=== PATIENT | male | born 1975 | race Caucasian/White ===

== ENCOUNTER → 2016-12-15 | Outpatient (CLI) | payer OTHER ==
[~2016-12-15] VITALS: Ht 175.3 cm; Wt 93.1 kg
[~2016-12-15] MED LIST: BACLOFEN 10MG T10 MG PO; IMITREX 50 MG T50 MG PO; NABUMETONE 500500 M1 PO; NEURONTIN600 MG PO; ROBAXIN 750 MG750 M1 PO; SALSALATE 500M500 MG PO; VITAMIN D1000 UNIT PO; WELLBUTRIN SR150 MG PO
--- NOTE | ~2016-12-15 | HPC ---
[facility] [place] [address] PAIN MANAGEMENT CONSULTATION Name: QING BUSTAMANTE Akhil Room #: REG [facility]#: [id number] Admission: 12/15/16 Attend Phys: Wesley العلي DO Discharge: Date of : 71 Report #: [id number] THIS REPORT FOR: //name// CC: [facility] physician/PCP ALISSA العلي DATE OF SERVICE: 12/15/2016 DATE OF SERVICE: 12/16/2015 CHIEF COMPLAINT: Myofascial pain. HISTORY OF PRESENT ILLNESS: As you know, patient is a 41-year-old male suffering from chronic myofascial paraspinal musculature pain that radiates from the low back to the cervical region. He denies specific injury or trauma that may have led to symptoms. He states the pain began 04/06/2010, progressively worsened. He has been followed by the [place] system for some time where he has been evaluated and treated. Apparently, the patient received trigger point injections in the past which were effective. He is referred to our clinic for evaluation with essentially negative MRI of the lumbar spine, which shows no significant arthritic changes. No focal disk protrusions. No extrusions and only minimal facet arthropathy at 1 level at L4-L5. The patient indicates his pain is continuous and aching, placing current pain score is 7/10, daily average at 6-7/10. Worst the pain has been is 10/10. The patient states the pain is elicited with lifting, carrying, sitting, standing and improves with lying down, massage and the use of pain medications. He has been referred specifically to our clinic to discuss interventional treatments for axial back pain. PAST MEDICAL HISTORY: None. PAST SURGICAL HISTORY: Left index finger surgery, 02/24/2015. SOCIAL HISTORY: The patient smokes half pack tobacco per day and has done so for greater than 16 years. 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 He is working, not receiving workmen's compensation nor is he trying to obtain disability benefits. He is not in litigation in regards to his pain. He is unaccompanied today. REVIEW OF SYSTEMS: Positive for headaches, double vision, depression, paraspinal musculature pain. All other review of systems negative per 12-point review of systems other than those listed in history of present illness. Pain impact score 27/70 indicating mild to moderate interference of daily activities secondary to pain. [address] [address] PAIN MANAGEMENT CONSULTATION Name: QING BUSTAMANTE Akhil Room #: REG NEETA Pelayo#: [id number] Admission: 12/15/16 Attend Phys: Wesley العلي DO Discharge: Date of : 71 Report #: [id number] ALLERGIES: No known drug allergies. CURRENT MEDICATIONS: Sumatriptan 50 mg p.r.n., salicylate 500 mg 3 times a day, methocarbamol 750 mg twice a day, vitamin D 1000 units per day, bupropion SR 150 mg once a day. IMAGING: MRI lumbar spine obtained on 02/18/2016 shows 5 lumbar vertebral bodies, mild broad-based disk bulge at L5-S1, encroaching upon but not touching the S1 nerve roots. No central canal stenosis, neural foraminal stenosis, minimal facet arthropathy noted at L4-L5. PHYSICAL EXAMINATION: VITAL SIGNS: Blood pressure 143/93, pulse 90, respiratory rate 16, unlabored. The patient is 96% on room air. Height 5 feet 9 inches tall, weight 205.2 pounds, BMI calculated 30.3. GENERAL: Well-developed, well-nourished, well-hydrated 41-year-old male appearing stated age, placing current pain score at approximately 7/10. HEENT: Normocephalic, atraumatic. Pupils equal, round, reactive to light. Extraocular muscles are intact. Sclerae nonicteric without injection. NEUROLOGIC: Cranial nerves 2 through grossly intact. LUNGS: Clear, no wheezes, rhonchi or rales. CARDIOVASCULAR: Regular. No appreciable gallop or rub. ABDOMEN: Soft, nontender, nondistended, normoactive bowel sounds. EXTREMITIES: Show no clubbing, no cyanosis, no edema. MUSCULOSKELETAL: There is palpatory tenderness throughout the paraspinal musculature of the cervical, thoracic and lumbar area. The majority of symptoms were noted in the mid thoracic to lower lumbar area. I was able to elicit 10 specific trigger points, multiple tender points throughout the area. Deep inhalation and exhalation does not change overall pain. Forward flexion of the lumbar spine changes. Symptoms mildly intensifying mid thoracic, lower thoracic and entire lumbar paraspinal musculature. Extension cause no change in pain as does lateral flexion. Seated straight leg raising negative. Supine straight leg raising negative. Ranulfo's test negative. Modified Gaenslen's positive for some axial back pain noted paraspinally. Ankle clonus negative. Babinski is negative. Intact to light touch from L1 through S2 dermatomes. Deep tendon reflexes were symmetrical in patella and Achilles. ASSESSMENT: 1. Myofascial pain. 2. Muscle spasms of the paraspinal musculature of the thoracic and lumbar region. 3. Chronic intractable pain. PLAN: 1. The patient has been referred to our service for evaluation for what appears to be myofascial pain. The patient is suffering from no radicular symptoms in [address] [address] PAIN MANAGEMENT CONSULTATION Name: QING BUSTAMANTE Room #: REG [facility]#: [id number] Admission: 12/15/16 Attend Phys: Wesley العلي DO Discharge: Date of : 71 Report #: [id number] his case. The pain is elicited with deep palpation along the paraspinal musculature of the thoracic and lumbar area. I was able to elicit 10 trigger points, no specific tender points during the evaluation. We have reviewed with the patient the lack of pathology in the lumbar region thus ruling out the lumbar and the thoracic area, as the source of the patient's symptoms. Please do announce to the patient today, there are no findings in his lumbar region that would be at all concerning. Only findings were mild facet arthropathy at L4-L5 which is age related and a mild broad-based disk bulge at L5-S1, again age-related finding. We have discussed with the patient the options for treatment for myofascial pain. The following was discussed. The patient and I discussed treatment options, which would include physical therapy, stretching exercises, core strengthening, concerted effort at any kind of weight loss that may be appreciated. We also discussed trigger point injections of the paraspinal musculature, use of the nonsteroidal anti-inflammatory medications and possible rotation in his muscle relaxant, which can be handled by his primary care team. We also discussed cognitive behavioral therapy. After reviewing risks and benefits of all proposed treatment options, the patient chose to begin with physical therapy and trigger point injections. 2. The patient will be sent to physical therapy. He will be doing appointments twice a week for 6 weeks. I have offered to the patient not only the typical physical therapy type program, but also modalities on an as needed basis such as electrical stimulation ultrasound, TENS units and traction if necessary. The patient will begin physical therapy immediately. 3. The patient has requested trigger point injections to be performed today. I have advised the patient of the risks and benefits of this procedure. The risks include but not necessarily limited to bleeding, bruising, infection, worsening pain, no relief of pain, also risk of temporary or permanent muscle weakness, temporary or permanent nerve damage. The patient states understood and wished to proceed. 4. The patient will return to our clinic after he has completed his physical therapy. We will see him back in consultation just to confirm improvement in his overall pain. The patient was advised that once he begins a physical therapy and finds relief with its use, he is to continue the physical therapy on his own at home. 5. We wish to thank you for the opportunity to see the patient in consultation. We will keep you apprised of his response to treatment, as we address his myofascial pain. Again, we wish to thank you for the opportunity to participate in his care. PROCEDURE NOTE DESCRIPTION OF PROCEDURE: Trigger point injections. After obtaining written consent, the patient was placed in a prone position. By [address] [address] PAIN MANAGEMENT CONSULTATION Name: QING BUSTAMANTE Room #: REG CLJasvir Pelayo#: [id number] Admission: 12/15/16 Attend Phys: Wesley العلي DO Discharge: Date of : 71 Report #: [id number] palpating using a single finger, 10 trigger points were identified that reproduced the patient's typical radiating pain pattern. Trigger points were located in the paraspinal musculature of the thoracic and lumbar area bilaterally. Each of the target sites of injections were cleansed using aseptic technique with chlorhexidine. A #27 gauge 1-1/4 inch needle was used to perform this procedure. The needle was advanced towards each trigger point until the patient's typical radiating pain pattern was reproduced. After negative aspiration for heme, 1 mL of a solution containing 1 mL 40 mg per mL, 40 mg total triamcinolone and 9 mL of bupivacaine 0.5% injected in a fanned out distribution at each of the trigger points. A total volume of 10 mL being given. Sterile bandages were placed over each injection site. The patient tolerated the procedure well, carefully escorted to recovery room in stable condition. No apparent complications. After meeting discharge criteria, the patient discharged home. By: [id number] Wesley العلي DO /delicia
== END | disposition home or self-care (01) ==
LOC: PAIN 07:21
DX: M79.1 Myalgia (principal); G89.29 Other chronic pain; F17.210 Nicotine dependence, cigarettes, uncomplicated; Z98.890 Other specified postprocedural states

== ENCOUNTER → 2016-12-29 | Outpatient (CLI) | payer OTHER ==
--- NOTE | ~2016-12-29 | HPC ---
[facility] [address] [place] [address] PAIN MANAGEMENT CONSULTATION Name: ROBBYQING Akhil Room #[facility] [id number] Admission: 12/29/16 Attend Phys: Wesley العلي DO Discharge: Date of : 71 Report #: [id number] THIS REPORT FOR: //name// CC: [facility] physician/PCP ALISSA العلي DATE OF SERVICE: 12/29/2016 DATE OF SERVICE: 12/29/2016 CHIEF COMPLAINT: Myofascial pain. HISTORY OF PRESENT ILLNESS: As you know, patient is a 41-year-old male suffering from chronic myofascial paraspinal musculature pain that radiates from the low back towards cervical region. He has no spinous process tenderness. He was last seen in our clinic where he underwent trigger point injections on 12/15/2016. He returns today stating improvement of about 25%. He has less pain overall. He is taking baclofen b.i.d. and nabumetone b.i.d. with good efficacy. His pain is now rated at 5/10. States the pain is constant, aching, and throbbing, exacerbated with lifting, standing for any length of time, sitting for any length of time, use of medications, massage therapy, lying down, TENS unit and trigger point injections. He returns today to discuss other treatment options to address residual pain. ALLERGIES: No known drug allergies. CURRENT MEDICATIONS: Nabumetone 500 mg b.i.d., baclofen 10 mg b.i.d., sumatriptan 50 mg p.r.n., salicylate 500 mg 3 times a day, gabapentin 600 mg twice a day, cholecalciferol 1 tab per day, bupropion 150 mg once a day. SOCIAL HISTORY: The patient continues to smoke half pack of tobacco per day and has done so for greater than 16 years. He is working, not receiving workmen's compensation, unaccompanied today. IMAGING: No new imaging available. PHYSICAL EXAMINATION: VITAL SIGNS: Blood pressure 134/77, pulse is 90, respiratory rate 16, unlabored. The patient is 96% on room air. Height 5 feet 9 inches tall, weight 205 pounds, BMI calculated 30.2. GENERAL: Well-developed, well nourished, well hydrated 41-year-old male appearing stated age. He is placing current pain score around 5/10. HEENT: Normocephalic, atraumatic. Pupils equal, round, reactive to light. EXTREMITIES: Show no clubbing, no cyanosis, no edema. MUSCULOSKELETAL: Palpatory tenderness throughout [place] [address] PAIN MANAGEMENT CONSULTATION Name: ROBBYQING Akhil [facility] [id number] Admission: 12/29/16 Attend Phys: Wesley العلي DO Discharge: Date of : 71 Report #: [id number] the cervical, thoracic and lumbar area. No spinous process tenderness. Deep palpation elicit multiple tender points, no specific trigger points. ASSESSMENT: 1. Myofascial pain. 2. Muscle spasms of the paraspinal musculature of the cervical, thoracic and lumbar region. 3. Poor posture both in seated and standing position. 4. Chronic intractable pain. PLAN: 1. The patient returns today for followup visit where we have discussed with the patient the sources of myofascial pain, typical myofascial pain in the paraspinal muscle area is related to posture issues. 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 Stretching exercises, core strengthening, more ergonomic positioning at the workplace would improve his symptoms. We also discussed the use of the baclofen, nabumetone for baseline pain control. This in conjunction with the possibility of adding myofascial release techniques and acupuncture would be the most effective treatment options. Continuation of injections such as trigger points can be helpful on a periodic basis, but would not be suggested for long-term treatment. Exposure to the active ingredients in the trigger points are limited. I would recommend myofascial release acupuncture therapy along with medication management. We have seen improvement in the patient's symptoms and with postural changes, I believe he has improved even further. 2. Strongly recommend the patient look into myofascial release acupuncture therapy. There are multiple practitioners of this in the area. I would recommend that he seek these out for treatment. If the patient wishes, we could provide him with some suggestions of individuals that provide this type of therapy. He will consider his options in regards to this treatment protocol. 3. The patient was provided refill prescription of his baclofen 10 mg dose 1 tab p.o. t.i.d., requested 3 months worth of medication, given him ____, which is a 3 months' worth of this therapy. 4. The patient was provided a prescription of nabumetone 500 mg dose. I have given him #90 with 2 refills, 3 months' worth of medication. 5. The patient will return to our clinic on an as needed basis. He is going to seek conservative treatment through chiropractic manipulation acupuncture therapy. He is going to continue his physical therapy, stretching exercises he has learned in the past. This should improve the patient's pain. 6. We have offered to assist the patient in obtaining assistance for ergonomic designed work space. 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 7. We wish to thank you for the opportunity to see the patient in consultation, [facility] [address] [place] [address] PAIN MANAGEMENT CONSULTATION Name: QING BUSTAMANTE Room #: REG CLI Pierce#: [id number] Admission: 12/29/16 Attend Phys: Wesley العلي DO Discharge: Date of : 71 Report #: [id number] glad he is doing well. We will see him back for followup visit on an as needed basis. He has 3 months worth of medication. By: [id number] Wesley العلي DO /nt
== END ==
LOC: PAIN 07:12
DX: G89.29 Other chronic pain (principal); M79.1 Myalgia; F17.210 Nicotine dependence, cigarettes, uncomplicated

== ENCOUNTER → 2017-04-19 | Outpatient (CLI) | payer OTHER ==
[~2017-04-19] VITALS: Ht 177.8 cm; Wt 94.1 kg
[2017-04-19 09:37] VITALS: BP 137/92
== END | disposition home or self-care (01) ==
LOC: PAIN 07:09
DX: M79.1 Myalgia (principal); M40.04 Postural kyphosis, thoracic region; F17.210 Nicotine dependence, cigarettes, uncomplicated; Z98.890 Other specified postprocedural states